=== PATIENT | female | born 1975 | race Caucasian/White ===

== ENCOUNTER 2016-08-24 08:08 | Day surgery (SDC) | payer MEDICAID ==
[2016-08-24] MEDS ORDERED: LIDOCAINE 2% JELLY 30 ML TUBE ONE (09:15)
[2016-08-24] MEDS ORDERED: ONDANSETRON HCL INJ/PF 4 MG/2 ML SDV ONE (09:16)
[2016-08-24] MEDS ORDERED: GLYCOPYRROLATE INJ 0.4 MG/2 ML VIAL ONE (09:16)
[2016-08-24] MEDS ORDERED: PROMETHAZINE HCL INJ 25 MG/1 ML VIAL ONE (09:16)
[2016-08-24] MEDS ORDERED: NALOXONE HCL INJ/PF 0.4 MG/1 ML SDV ONE (09:16)
[2016-08-24] MEDS ORDERED: EPINEPHRINE INJ 1 MG/10 ML DISP.SYRIN ONE (09:17)
[2016-08-24] MEDS ORDERED: FLUMAZENIL INJ 0.5 MG/5 ML VIAL IV ONE (09:17)
[2016-08-24] MEDS ORDERED: GLUCAGON,HUMAN RECOMB 1 MG INJ ONE (09:17)
[2016-08-24] MEDS: MIDAZOLAM 2 MG/2 ML INJ ONE ×3 (09:33→09:43)
[2016-08-24] MEDS: FENTANYL CITRATE INJ/PF 100 MCG/2 ML AMPUL ONE ×2 (09:35→09:39)
[2016-08-24] MEDS ORDERED: SIMETHICONE 80 MG TAB.CHEW ONE (10:52)
[2016-08-24 11:21] LABS: HEMOGLOBIN 12.7 g/dL (12.0-15.5); HGB HCT DIFFERENCE 1.1; MEAN CORPUSCULAR HGB CONC 34.2 g/dL (32.0-36.0); MEAN CORPUSCULAR VOLUME 88 fl (80-97); RED BLOOD COUNT 4.22 10^6/uL (3.72-5.28); RED CELL DISTRIBUTION WIDTH 14.6 % (11.5-14.0); WHITE BLOOD COUNT 8.4 10^3/uL (4.0-10.5)
[2016-08-24 11:23] VITALS: BP 128/66
[2016-08-24 11:49] LABS: BASOPHILS % (MANUAL) 1 % (0-2); EOSINOPHILS % (MANUAL) 6 % (0-6); LYMPHOCYTES % (MANUAL) 14 % (13-45); TOTAL CELLS COUNTED 100
[2016-08-24 11:55] LABS: RBC MORPHOLOGY COMMENT NORMO-CYTIC/CHROMIC
[2016-08-24 11:58] LABS: ERYTHROCYTE SEDIMENTATION RATE 25 mm/hr (0-20)
--- NOTE | 2016-08-24 14:24 | DISCHARGE SUMMARY E ---
Discharge Summary NAME: AMADA ADAMSON : 1975 AGE: 40Y ADMITTED: 08/24/2016 DISCHARGED: 08/24/2016 FINAL DIAGNOSES: 1. EXTERNAL HEMORRHOIDS 2. RECTAL BLEEDING. HISTORY: A 40-year-old female, ALLERGIC TO PENICILLIN, SULFA, IMITREX, and MOTRIN, underwent colonoscopy today to the ascending colon. No active bleeding. The only thing I can see is external hemorrhoids to explain her bleeding. She does have dimunitive rectosigmoid polyps. I saw no diverticulosis; no active bleeding. PLAN: 1. Assurance. 2. Continue present management. 3. Obtain baseline CBC and iron and ferritin and B12. 4. Patient to see us in the office in the next few days. DICTATING PHYSICIAN: IRAIS MERINO M.D. [id number] PHY#: [id number] ID: [id number] JOB#: [id number] ACCT: [id number] cc:IRAIS MERINO M.D. >
--- NOTE | 2016-08-24 14:27 | OPERATIVE REPORT E ---
Operative Report NAME: AMADA ADAMSON : 1975 AGE: 40Y DATE OF SURGERY: 08/24/2016 ROOM: HISTORY: Patient initially was scheduled for sigmoid. She did not show up on Tuesday, but she was scheduled for Tuesday. She has continued on liquids because of her persistent rectal bleeding, and a prolonged diet; We elected to change sigmoid into colonoscopy. PREOPERATIVE DIAGNOSIS: RECTAL BLEEDING. POSTOPERATIVE DIAGNOSIS: 1. EXTERNAL HEMORRHOIDS. 2. BENIGN-LOOKING RECTOSIGMOID POLYPS, TOO SMALL TO BIOPSY (2 MM TO 3 MM IN SIZE EACH) OPERATION: The scope advanced all the way to proximal ascending. I could not go into the cecum because there was large amount of muddy, full liquidy stool. RECTAL EXAM: External hemorrhoids. Rectum shows dimunitive polyps. SIGMOID: Dimunitive polyps. DESCENDING COLON: Normal. TRANSVERSE COLON: Normal. ASCENDING COLON: Normal. CECUM: Was not visualized because of large amount of stool. Scope withdrawn ascending, transverse, descending, sigmoid, all the way to the rectum. CONCLUSION: RECTAL BLEEDING, MOST LIKELY SECONDARY TO EXTERNAL HEMORRHOIDS WHICH WERE VISUALIZED NICELY ON RETROFLEXED POSITION. NO ACTIVE BLEEDING. THE ONLY FINDING TO EXPLAIN THE BLEEDING IS EXTERNAL HEMORRHOIDS; LARGE AMOUNT OF MUDDY STOOL IN THE ASCENDING COLON. PLAN: 1. If the patient continues to have rectal bleeding, we will consider surgical consult, possible hemorrhoid surgery (external). 2. We will obtain baseline CBC. ADDENDUM: It is important to note that the patient did have another colonoscopy by Dr. Epps a few months ago, and she did have upper scope as well. DICTATING PHYSICIAN: IRAIS MERINO M.D. [id number] PHY#: [id number] ID: [id number] JOB#: [id number] ACCT: [id number] cc:IRAIS MERINO M.D. >
== END 2016-08-24 11:25 | disposition home or self-care (01) ==
LOC: END 08:08
PROVIDERS: ATTEND Specialist
PROC: 0DJD8ZZ Inspection of Lower Intestinal Tract, Via Natural or Artificial Opening Endoscopic (ICD-10-PCS; principal; 2016-08-24 09:00)
DX: K64.4 Residual hemorrhoidal skin tags (principal); K64.8 Other hemorrhoids; D12.7 Benign neoplasm of rectosigmoid junction; K59.00 Constipation, unspecified; Z88.0 Allergy status to penicillin; Z88.2 Allergy status to sulfonamides; Z88.8 Allergy status to other drugs, medicaments and biological substances; Z88.6 Allergy status to analgesic agent; Z79.899 Other long term (current) drug therapy
CPT/HCPCS: 45330; 86256; 36415; 82607; 82728; 83540; 85025; 85652; J2250; J3010; J1610; J3490; J2405; J0171; J2310; J2550

== ENCOUNTER 2016-09-01 19:30 | Emergency (ER) | payer MEDICAID ==
--- NOTE | 2016-09-01 19:42 | ER Document Report ---
ED Medical Screen (RME) - General Stated Complaint: RECTAL ISSUE Mode of Arrival: Ambulatory Information source: Patient Notes: Patient presents to the ED with c/o hemorrhoids. Instructed by dr thorne to go to ED for surgical consult. Also presents with diarrhea. I have greeted and performed a rapid initial assessment of this patient. A comprehensive ED assessment and evaluation of the patient, analysis of test results and completion of the medical decision making process will be conducted by additional ED providers. TRAVEL OUTSIDE OF THE [place] IN LAST 30 DAYS: No - Related Data Allergies/Adverse Reactions: erythromycin base [Erythromycin Base] Allergy (Severe, Verified 08/24/16 08:21) Anaphylaxis Penicillins Allergy (Severe, Verified 08/24/16 08:21) Anaphylaxis Sulfa (Sulfonamide Antibiotics) Allergy (Severe, Verified 08/24/16 08:21) Anaphylaxis sumatriptan [From Imitrex] Allergy (Severe, Verified 08/24/16 08:21) Chest pain sumatriptan succinate [From Imitrex] Allergy (Severe, Verified 08/24/16 08:21) Chest pain ibuprofen [From Motrin] Allergy (Intermediate, Verified 08/24/16 08:21) hives, upset stomach Past Medical History - Past Medical History Cardiac Medical History: Denies: Hx Heart Attack, Hx Hypertension Pulmonary Medical History: Denies: Hx Asthma, Hx Bronchitis, Hx COPD, Hx Pneumonia Neurological Medical History: Reports: Hx Migraine. Denies: Hx Seizures GI Medical History: Reports: Hx Gastritis, Hx Gastroesophageal Reflux Disease, Hx Irritable Bowel, Hx Ulcerative Colitis, Hx Colonoscopy Musculoskeltal Medical History: Reports Hx Arthritis - hands Psychiatric Medical History: Reports: Hx Anxiety, Hx Depression, Hx Post Traumatic Stress Disorder Past Surgical History: Reports: Hx Cholecystectomy, Hx Oral Surgery. Denies: Hx Hysterectomy - Immunizations Immunizations up to date: No Hx Diphtheria, Pertussis, Tetanus Vaccination: No - 9-10 years ago
--- NOTE | 2016-09-01 22:30 | ER Document Report ---
ED General - General Chief Complaint: Rectal Pain Stated Complaint: RECTAL ISSUE Mode of Arrival: Ambulatory Notes: Patient is a 4-year-old female with past medical history of irritable bowel syndrome, currently taking a regiment designed to keep her stools frequent loose who presents with concerns of ongoing rectal and anal irritation. States that she's been having symptoms for 20 years but the pain has become increasingly worse with bowel movements since starting a new medication designed to help her have regular bowel movements. She was instructed by her GI doctor, emergency department shannon for surgical consultation given her ongoing discomfort despite multiple medical therapies. Does describe the pain in her rectum as being a constant, severe, burning pain. Worsened by movement. She's been trying multiple medications without any relief of her pain. Denies any fever, vomiting, abdominal pain. States that her symptoms are overall greatly worsened by her chronic daily anxiety and depression. TRAVEL OUTSIDE OF THE [place] IN LAST 30 DAYS: No - Related Data Allergies/Adverse Reactions: erythromycin base [Erythromycin Base] Allergy (Severe, Verified 08/24/16 08:21) Anaphylaxis Penicillins Allergy (Severe, Verified 08/24/16 08:21) Anaphylaxis Sulfa (Sulfonamide Antibiotics) Allergy (Severe, Verified 08/24/16 08:21) Anaphylaxis sumatriptan [From Imitrex] Allergy (Severe, Verified 08/24/16 08:21) Chest pain sumatriptan succinate [From Imitrex] Allergy (Severe, Verified 08/24/16 08:21) Chest pain ibuprofen [From Motrin] Allergy (Intermediate, Verified 08/24/16 08:21) hives, upset stomach Past Medical History - General Information source: Patient - Social History Smoking Status: Current Every Day Smoker Chew tobacco use (# tins/day): No Frequency of alcohol use: Occasional Drug Abuse: None Lives with: Spouse/Significant other Family History: Reviewed & Not Pertinent Patient has suicidal ideation: No Patient has homicidal ideation: No - Past Medical History Cardiac Medical History: Denies: Hx Heart Attack, Hx Hypertension Pulmonary Medical History: Denies: Hx Asthma, Hx Bronchitis, Hx COPD, Hx Pneumonia Neurological Medical History: Reports: Hx Migraine. Denies: Hx Seizures Renal/ Medical History: Denies: Hx Peritoneal Dialysis GI Medical History: Reports: Hx Gastritis, Hx Gastroesophageal Reflux Disease, Hx Irritable Bowel, Hx Ulcerative Colitis, Hx Colonoscopy Musculoskeltal Medical History: Reports Hx Arthritis - hands Psychiatric Medical History: Reports: Hx Anxiety, Hx Depression, Hx Post Traumatic Stress Disorder Past Surgical History: Reports: Hx Cholecystectomy, Hx Oral Surgery. Denies: Hx Hysterectomy - Immunizations Immunizations up to date: No Hx Diphtheria, Pertussis, Tetanus Vaccination: No - 9-10 years ago Review of Systems - Review of Systems Notes: Constitutional: Negative for fever. Cardiovascular: Negative for chest pain. Respiratory: Negative for shortness of breath. Gastrointestinal: Negative for vomiting positive for loose bowel movements and multiple external hemorrhoids Musculoskeletal: Negative for back pain. Skin: Negative for rash. Neurological: Negative for weakness or numbness. 10 point ROS negative except as marked above and in HPI. Physical Exam - Vital signs Vitals: Temp Pulse Resp BP Pulse Ox 98.2 F 123 H 18 127/75 H 100 09/01/16 19:40 09/01/16 19:40 09/01/16 19:40 09/01/16 19:40 09/01/16 19:40 Interpretation: Tachycardic Notes: PHYSICAL EXAMINATION: GENERAL: Well-appearing, well-nourished and in no acute distress. HEAD: Atraumatic, normocephalic. EYES: sclera anicteric, conjunctiva are normal. ENT: Moist mucous membranes. NECK: Normal range of motion LUNGS: Normal work of breathing HEART: 2+ radial pulses bilaterally Abdomen: No focal abdominal tenderness rebound or guarding Rectal: One small external hemorrhoid that is not thrombosed. Rectal tone normal. No anal fissure. EXTREMITIES: no pitting or edema. No cyanosis. NEUROLOGICAL: No focal neurological deficits. Moves all extremities spontaneously and on command. PSYCH: Normal mood, normal affect. SKIN: Warm, Dry, normal turgor, no rashes or lesions noted. Course - Re-evaluation Re-evalutation: 09/02/16 03:42 Presentation is most consistent with uncomplicated external hemorrhoids. No evidence of thrombosed hemorrhoid or an indication for surgical consultation. Patient's abdominal exam is otherwise benign. I do not suspect a more significant lower GI bleed or upper GI bleed based on history, vitals, and patient's overall well appearance. At this time will discharge with return precautions and follow-up recommendations. Verbal discharge instructions given a the bedside and opportunity for questions given. Medication warnings reviewed. Patient is in agreement with this plan and has verbalized understanding of return precautions and the need for primary care follow-up in the next 24-72 hours. - Vital Signs Vital signs: Temp Pulse Resp BP Pulse Ox 98.2 F 100 16 113/55 L 96 09/01/16 19:40 09/01/16 22:51 09/01/16 22:51 09/01/16 22:51 09/01/16 22:51 Discharge - Discharge Clinical Impression: Rectal pain, chronic, External hemorrhoid Condition: Good Disposition: HOME, SELF-CARE Additional Instructions: You have been started on topical triamcinolone to help treat the anal irritation. Apply only twice daily. Please follow-up with your GI doctor regarding other options including topical nitroglycerin cream. Return if you develop a fever, persistent vomiting, large volume rectal bleeding, or any other symptoms that are concerning to you. Prescriptions: Triamcinolone Acetonide 80 gm TP BID PRN #80 cream.gm. PRN Reason: Referrals: ROSALIE CASTILLO DO [Primary Care Provider] - Follow up as needed
[2016-09-01 22:52] VITALS: BP 113/55
== END 2016-09-01 22:50 | disposition home or self-care (01) ==
LOC: ER 19:30
DX: K64.4 Residual hemorrhoidal skin tags (principal); K58.9 Irritable bowel syndrome, unspecified; K62.89 Other specified diseases of anus and rectum; G89.29 Other chronic pain; F41.9 Anxiety disorder, unspecified; F32.9 Major depressive disorder, single episode, unspecified; R00.0 Tachycardia, unspecified; F17.200 Nicotine dependence, unspecified, uncomplicated; Z79.899 Other long term (current) drug therapy; Z88.1 Allergy status to other antibiotic agents; Z88.0 Allergy status to penicillin; Z88.2 Allergy status to sulfonamides; Z88.6 Allergy status to analgesic agent
CPT/HCPCS: 99283

== ENCOUNTER → 2017-03-23 | Outpatient (CLI) | payer MEDICAID ==
--- NOTE | 2017-03-23 19:49 | RADIOLOGY REPORT (SQ) ---
EXAM DESCRIPTION: ABDOMEN 2 VIEWS COMPLETED DATE/TIME: 03/23/2017 7:39 pm REASON FOR STUDY: Constipation, unspecified COMPARISON: None. NUMBER OF VIEWS: Two views. TECHNIQUE: Supine and erect/decubitus radiographic images of the abdomen acquired. LIMITATIONS: None. FINDINGS: FREE AIR: None. No abnormal gas collections. LUNG BASES: Clear. BOWEL GAS PATTERN: Nonobstructive pattern. No dilated loops or air fluid levels. CALCIFICATIONS: No suspicious calcifications. SOFT TISSUES: No gross mass or suggestion of organomegaly. HARDWARE: There are clips in the right upper quadrant consistent with cholecystectomy. 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 OTHER: No other significant finding. IMPRESSION: NO RADIOGRAPHIC EVIDENCE FOR ACUTE ABDOMINAL DISEASE. TECHNICAL DOCUMENTATION: JOB ID: [id number] [employer]- All Rights Reserved
== END ==
LOC: RAD 19:14
PROVIDERS: ATTEND Physician Assistant
DX: K59.00 Constipation, unspecified (principal)
CPT/HCPCS: 74020

== ENCOUNTER 2017-06-24 13:47 | Emergency (ER) | payer MEDICAID ==
[2017-06-24 13:53] VITALS: BP 129/74
--- NOTE | 2017-06-24 14:46 | ER Document Report ---
HPI - HPI Patient complains to provider of: left axilla abscess Onset: Other - 9 days ago Onset/Duration: Gradual Pain Level: 4 Context: 41 yo female left axilla abscess 9 days ago, Getting worse despite levoquin 500mg for 7 days. No hx hidradinitis. Used warm compress. No hx MRSA. Associated Symptoms: None Exacerbated by: Movement Relieved by: Denies - ROS ROS below otherwise negative: Yes Systems Reviewed and Negative: Yes All other systems reviewed and negative - REPRODUCTIVE Reproductive: DENIES: : - DERM Skin Color: Normal Past Medical History - General Information source: Patient - Social History Smoking Status: Current Every Day Smoker Frequency of alcohol use: None Drug Abuse: None Occupation: unemployed Lives with: Family Family History: Reviewed & Not Pertinent Patient has suicidal ideation: No Patient has homicidal ideation: No - Past Medical History Cardiac Medical History: Neurological Medical History: Reports: Hx Migraine. Denies: Hx Seizures Renal/ Medical History: Denies: Hx Peritoneal Dialysis GI Medical History: Reports: Hx Gastritis, Hx Gastroesophageal Reflux Disease, Hx Irritable Bowel, Hx Ulcerative Colitis, Hx Colonoscopy Other: see surgeon Wesly GUEVARA Musculoskeltal Medical History: Reports Hx Arthritis - hands Psychiatric Medical History: Reports: Hx Anxiety, Hx Depression, Hx Post Traumatic Stress Disorder Past Surgical History: Reports: Hx Cholecystectomy. Denies: Hx Hysterectomy Other: left facial surgery - Immunizations Immunizations up to date: No Hx Diphtheria, Pertussis, Tetanus Vaccination: No - 9-10 years ago Vertical Provider Document - CONSTITUTIONAL Agree With Documented VS: Yes Exam Limitations: No Limitations General Appearance: No Apparent Distress - INFECTION CONTROL TRAVEL OUTSIDE OF THE [place] IN LAST 30 DAYS: No - HEENT HEENT: Normocephalic - NECK Neck: Supple - RESPIRATORY O2 Sat by Pulse Oximetry: 97 - MUSCULOSKELETAL/EXTREMETIES Musculoskeletal/Extremeties: TOM ANDREW - NEURO Level of Consciousness: Awake, Alert - DERM Integumentary: Warm, Dry, Abscess - left axilla with erythema, center fluctuance , surrounding induration Course - Re-evaluation Re-evalutation: 06/25/17 10:55 called pt to checkon her, it drained more last night, out of levaquin so called [facility]xycy[facility]. - Vital Signs Vital signs: Temp Pulse Resp BP Pulse Ox 97.8 F 112 H 18 129/74 H 97 06/24/17 13:52 06/24/17 13:52 06/24/17 13:52 06/24/17 13:52 06/24/17 13:52 Procedures - Incision and Drainage Left Arm Time completed: 16:10 Type: Simple Anesthetic type: 1% Lidocaine mL's of anesthetic: 6 Blade size: 11 I&D procedure: Betadine prep applied, Sterile dressing applied Incision Method: Incision made by scalpel Amount/type of drainage: large pus Notes: 06/25/17 10:57 left axilla Discharge - Discharge Clinical Impression: left axilla abscess I and D Condition: Good Disposition: HOME, SELF-CARE Instructions: Abscess ([facility]), Post Incision and Drainage Additional Instructions: Continue the Levaquin Wound culture is pending Keep the dressing on for 2 days of the packing will stay in the incision Return to the emergency room if worsening symptoms Warm compress Please complete the patient satisfaction survey if you get one, and return it.. If you do not receive a survey, then you can go to the [facility] website, [email or web address] and place your comments about your very good care. Thank you very much. It was a pleasure being your medical provider today. Prescriptions: Doxycycline Hyclate 100 mg PO BID #14 tablet.
[2017-06-24] MEDS ORDERED: LIDOCAINE 4%/TETRACAINE 0.5%/EPI 0.18% 5 ML TOPICAL SOLN TOP ONE (15:04)
[2017-06-24] MEDS ORDERED: ONDANSETRON 4 MG TAB.RAPDIS PO ONE (15:06)
[2017-06-24] MEDS ORDERED: OXYCODONE-ACETAMINOPHEN 5-325 MG TABLET PO ONE (15:06)
[2017-06-24] MEDS ORDERED: LIDOCAINE 1% INJ-PF (10 MG/ML) 30 ML SDV ONE (16:12)
[2017-06-24] MEDS ORDERED: LIDOCAINE 1% INJ-PF (10 MG/ML) 30 ML SDV INJ ONE ×2 (16:51)
== END 2017-06-24 16:34 | disposition home or self-care (01) ==
LOC: ER 13:47
PROC: 0H9CXZZ Drainage of Left Upper Arm Skin, External Approach (ICD-10-PCS; principal; 2017-06-24)
DX: L02.412 Cutaneous abscess of left axilla (principal); Z79.899 Other long term (current) drug therapy; F17.200 Nicotine dependence, unspecified, uncomplicated
CPT/HCPCS: 99283; 87070; 87205; 87075; 87077; 87186; 10060; S0119; J3490 ×2

== ENCOUNTER 2017-07-27 19:59 | Emergency (ER) | payer MEDICAID ==
[2017-07-27 20:20] VITALS: BP 141/114
[2017-07-27] MEDS ORDERED: HYDROCODONE/ACETAMINOPHEN 5-325 MG 6 TAB/DSPK PO PRN (22:35)
[2017-07-27] MEDS ORDERED: DOXYCYCLINE HYCLATE 100 MG TABLET PO ONE (22:35)
[2017-07-27] MEDS ORDERED: HYDROCODONE/ACETAMINOPHEN 5-325 MG TABLET PO ONE (22:35)
--- NOTE | 2017-07-27 22:36 | ER Document Report ---
ED General - General Chief Complaint: Abscess Stated Complaint: LEFT ARM ABSCESS Time Seen by Provider: 07/27/17 22:09 Notes: Patient is a 41-year-old female who presents with complaint of an abscess in the right axilla. She says that she has not there was some spreading redness it has been there for less 2 days. She was treated for an abscess several weeks ago. She is placed on antibiotics she finished just over week ago. She says she was doing well until a few days ago when this area started to bother her. No fevers. One episode of vomiting. Patient says she has diarrhea but also has chronic diarrhea. She says diarrhea may is a bit worse than usual. No other complaints at this time. TRAVEL OUTSIDE OF THE [place] IN LAST 30 DAYS: No - Related Data Allergies/Adverse Reactions: erythromycin base [Erythromycin Base] Allergy (Severe, Verified 07/27/17 20:03) Anaphylaxis Penicillins Allergy (Severe, Verified 07/27/17 20:03) Anaphylaxis Sulfa (Sulfonamide Antibiotics) Allergy (Severe, Verified 07/27/17 20:03) Anaphylaxis sumatriptan [From Imitrex] Allergy (Severe, Verified 07/27/17 20:03) Chest pain sumatriptan succinate [From Imitrex] Allergy (Severe, Verified 07/27/17 20:03) Chest pain ibuprofen [From Motrin] Allergy (Intermediate, Verified 07/27/17 20:03) hives, upset stomach esomeprazole [From Nexium] Allergy (Verified 07/27/17 20:03) Past Medical History - Social History Smoking Status: Current Every Day Smoker Chew tobacco use (# tins/day): No Frequency of alcohol use: None Drug Abuse: None Family History: Reviewed & Not Pertinent Patient has suicidal ideation: No Patient has homicidal ideation: No - Past Medical History Cardiac Medical History: Denies: Hx Heart Attack, Hx Hypertension Pulmonary Medical History: Denies: Hx Asthma, Hx Bronchitis, Hx COPD, Hx Pneumonia Neurological Medical History: Reports: Hx Migraine. Denies: Hx Seizures Renal/ Medical History: Denies: Hx Peritoneal Dialysis GI Medical History: Reports: Hx Gastritis, Hx Gastroesophageal Reflux Disease, Hx Irritable Bowel, Hx Ulcerative Colitis, Hx Colonoscopy Musculoskeltal Medical History: Reports Hx Arthritis - hands Psychiatric Medical History: Reports: Hx Anxiety, Hx Depression, Hx Post Traumatic Stress Disorder Past Surgical History: Reports: Hx Cholecystectomy, Hx Oral Surgery. Denies: Hx Hysterectomy - Immunizations Immunizations up to date: No Hx Diphtheria, Pertussis, Tetanus Vaccination: No - 9-10 years ago Review of Systems - Review of Systems Notes: My Normal Review Basic REVIEW OF SYSTEMS: CONSTITUTIONAL : Denies fever, chills, or sweats. Denies recent illness. RESPIRATORY: Denies cough, cold, or chest congestion. Denies shortness of breath, difficulty breathing, or wheezing. GASTROINTESTINAL: Denies abdominal pain. Chronic diarrhea. MUSCULOSKELETAL: Denies neck or back pain or joint pain or swelling. SKIN: Cellulitis on left axilla. NEUROLOGICAL: Denies altered mental status or loss of consciousness. ALL OTHER SYSTEMS REVIEWED AND NEGATIVE. Physical Exam - Vital signs Vitals: Temp Pulse Resp BP Pulse Ox 98.4 F 110 H 20 141/114 H 98 07/27/17 20:18 07/27/17 20:18 07/27/17 20:18 07/27/17 20:18 07/27/17 20:18 - Notes Notes: General Appearance: Well nourished, alert, cooperative, no acute distress, mild to moderate obvious discomfort. Vitals: reviewed, See vital signs table. Head: no swelling or tenderness to the head Eyes: PERRL, EOMI, Conjuctiva clear Chest wall: Patient has a small area of erythematous skin consistent with a cellulitis. This area is approximately 4 cm in diameter. Patient has a 1 cm area of induration at the center of the redness. There is no fluctuance associated with this. Bedside ultrasound does not show a fluid collection. Extremities: strength 5/5 in all extremities, good pulses in all extremities, no swelling or tenderness in the extremities, no edema. Skin: warm, dry, appropriate color, no rash Neuro: speech clear, oriented x 3, normal affect, responds appropriately to questions. Course - Re-evaluation Re-evalutation: 07/28/17 02:55 I talked the patient at length about incision and drainage versus not doing it. I recommend not do incision and drainage at this time being that do not see a drainable fluid collection a bedside ultrasound. She has more an area of induration consistent with early stages of developing an abscess. I informed her that if we are to cut this open now should most likely just have bloody discharge without actual purulent discharge and this would just cause her pain and probably not help improve her symptoms. Informed of the command place her on antibiotics for treatment of the cellulitis and to do warm compresses over the area. If she develops a larger swollen area and some fluctuance and she should return to the ER for reevaluation and possible incision and drainage at that time. She has worsening redness or swelling or fevers and she should return to the ER immediately. Patient agrees with plan will be discharged home. Dictation of this chart was performed using voice recognition software; therefore, there may be some unintended grammatical errors. - Vital Signs Vital signs: Temp Pulse Resp BP Pulse Ox 98.4 F 110 H 20 141/114 H 98 07/27/17 20:18 07/27/17 20:18 07/27/17 20:18 07/27/17 20:18 07/27/17 20:18 Discharge - Discharge Clinical Impression: Cellulitis Qualifiers: Site of cellulitis: extremity Site of cellulitis of extremity: axilla Laterality: left Qualified Code(s): L03.112 - Cellulitis of left axilla Condition: Good Disposition: HOME, SELF-CARE Additional Instructions: ORAL NARCOTIC MEDICATION: You have been given a prescription for pain control. This medication is a narcotic. It's best taken with food, as nausea can result if taken on an empty stomach. Don't operate machinery or drive within six hours of taking this medication. Do not combine this medicine with alcohol, or with any medication which can cause sedation (such as cold tablets or sleeping pills) unless you get permission from the physician. Narcotics tend to cause constipation. If possible, drink plenty of fluids and eat a diet high in fiber and fruits. DOXYCYCLINE: Doxycycline (Vibramycin, Doryx) is an antibiotic of the tetracycline family. This type of drug is useful for infections of the respiratory tract and genital tract, and is sometimes used for intestinal infections. Unlike most tetracyclines, doxycycline can be taken with food. It is longer acting, and (usually) less prone to side effects than regular tetracycline. Tetracycline antibiotics can stain immature teeth and SHOULD NOT BE TAKEN BY CHILDREN, NURSING MOTHERS, OR WOMEN. Tetracyclines can make you more prone to sunburn. Abdominal cramping, nausea, and diarrhea are occasional side effects. Women may experience vaginal yeast infections. Call the doctor at once if you develop hives, itching, shortness of breath , or lightheadedness. FOLLOW-UP CARE: Most simple abscesses will not require a follow up visit. If you had packing placed in the abscess, remove it as instructed by the physician. If you have been referred to a physician for follow-up care, call the physicians office for an appointment as you were instructed or within the next two days. If you experience worsening or a significant change in your symptoms, return to the Emergency Department at any time for re-evaluation. Please apply warm compresses to the area and take the antibiotics as prescribed. You have chronic diarrhea, but sometimes antibiotics can make diarrhea worse. please consider taking an over the counter probiotic. Please return to the ER immediately if you have fevers, blood in your stool, or severe abdominal pain as this can be a sign of an bowel infection caused by antibiotics called C.Diff. Please return to the ER immediately if you have spreading redness, increase in size of the area of firmness, you have an area of fluctuance, or if you feel that your infection is worsening in any way. Prescriptions: Doxycycline Hyclate 100 mg PO BID #20 capsule Hydrocodone/Acetaminophen [[place] 5-325 mg Tablet] 1 tab PO Q4 PRN #16 tablet PRN Reason: For Breakthrough Pain Ondansetron [Zofran Odt 4 mg Tablet] 1 tab PO Q4H PRN #15 tab.rapdis PRN Reason: For Nausea/Vomiting Forms: Return to Work Referrals: ROSALIE CASTILLO DO [Primary Care Provider] - Follow up in 3-5 days
[2017-07-27] MEDS ORDERED: ONDANSETRON 4 MG TAB.RAPDIS PO ONE (22:44)
== END 2017-07-27 23:49 | disposition home or self-care (01) ==
LOC: ER 19:59
DX: L03.112 Cellulitis of left axilla (principal); F17.200 Nicotine dependence, unspecified, uncomplicated; Z88.3 Allergy status to other anti-infective agents; Z88.0 Allergy status to penicillin; Z88.6 Allergy status to analgesic agent; Z90.49 Acquired absence of other specified parts of digestive tract
CPT/HCPCS: 99282; J3490

== ENCOUNTER → 2017-10-21 | Outpatient (CLI) | payer MEDICAID ==
--- NOTE | 2017-10-21 16:05 | RADIOLOGY REPORT (SQ) ---
EXAM DESCRIPTION: NM GASTRIC EMPTYING STUDY COMPLETED DATE/TIME: 10/21/2017 3:00 pm REASON FOR STUDY: NON-INTRACTABLE VOMITING WITH NAUSEA (R11.2) R11.2 NAUSEA WITH VOMITING, UNSPECIF IED COMPARISON: None. RADIONUCLIDE AND DOSE: 2.12 millicuries Tc-99m Sulfur Colloid. The route of agent administration: Oral. TECHNIQUE: Serial images acquired to 4 hours with each image recorded over a 30 minute time frame. I mage intensity values plotted with respect to time with linear regression algorithm. LIMITATIONS: None. FINDINGS: Patient was observed for 4 hours. Gastric emptying at 60 minutes was 36%. Gastric emptying at 90 minutes was 49%. Gastric emptying at 120 minutes was 59% Gastric emptying at 240 minutes was 83%. IMPRESSION: BORDERLINE DELAYED GASTRIC EMPTYING. TECHNICAL DOCUMENTATION: JOB ID: [id number] [employer]- All Rights Reserved Reading location - IP/workstation name: [id number]
== END ==
LOC: RAD 08:00
PROVIDERS: ATTEND Internal Medicine
DX: R11.2 Nausea with vomiting, unspecified (principal)
CPT/HCPCS: 81025; 78264; A9541

== ENCOUNTER 2020-01-14 07:41 | Day surgery (SDC) | payer MEDICAID ==
[2020-01-14 08:51] LABS: INTERNATIONAL RATION (INR) 0.91; PROTHROMBIN TIME 12.2 SEC (11.4-15.4)
[2020-01-14 08:52] LABS: PARTIAL THROMBOPLASTIN TIME 24.5 SEC (23.5-35.8)
[2020-01-14 10:57] LABS: APPEARANCE ALL TUBES CLEAR; COLOR ALL TUBES COLORLESS; CSF TOTAL VOLUME 8.1 CC; CSF TUBE NUMBER 3; VOLUME TUBE 4 2.1 CC
[2020-01-14 11:10] LABS: RED BLOOD CELL,CSF 0 /uL (0-10)
[2020-01-14 11:11] LABS: WHITE BLOOD CELL,CSF 1 /uL (0-5)
[2020-01-14 11:35] LABS: GLUCOSE,CSF 66 mg/dL (40-70); PROTEIN,CSF 55 mg/dL (12-60)
--- NOTE | 2020-01-14 13:15 | RADIOLOGY REPORT (SQ) ---
EXAM DESCRIPTION: LUMBAR PUNCTURE IMAGES COMPLETED DATE/TIME: 01/14/2020 10:39 am REASON FOR STUDY: MUSPECIFIED CONVULSIONS/ UNSPECIFIED ABNORMAL INVOLUNTARY MOVEMENTS R56.9 UNSPECI FIED CONVULSIONS R25.9 UNSPECIFIED ABNORMAL INVOLUNTARY MOVEMENTS R25.1 TREMOR, UNSPECIFIED COMPARISON: None. FLUOROSCOPY TIME: 17 seconds 1 images submitted to PACS. TECHNIQUE: Fluoroscopic guided lumbar puncture. LIMITATIONS: None. PROCEDURE: After written consent and assessment were obtained, the patient was brought into the fluo roscopy room and placed prone on the table. The patient's lower back was prepped in a sterile fashio n and an entry site was selected under live fluoroscopic guidance. The entry site was anesthetized wi th 1% lidocaine. A 20 gauge needle was advanced through the skin and into the thecal sac at the level of L2-L3. Opening pressure was 27 cm of water. After approximately 8 ml was drained, the closing p ressure was taken, which measured 20 cm of water. The needle was removed and a sterile bandage was p laced on the site. Specimens were sent to the lab for testing. A fluoroscopic spot image was saved to PACS confirming level access. FINDINGS: Clear CSF. IMPRESSION: Lumbar puncture under fluoroscopy. No immediate complication. COMMENT: Patient medication list reviewed: Yes- Quality ID# [id number]:Eligible professional attests to doc umenting in the medical record they obtained, updated, or reviewed the patient's current medications. . Quality ID 145: Final reports for procedures using fluoroscopy that document radiation exposure lillian jer, or exposure time and number of fluorographic images (if radiation exposure indices are not avail able) TECHNICAL DOCUMENTATION: JOB ID: [id number] 2010 [employer]- All Rights Reserved Reading location - IP/workstation name: [email or web address]
[2020-01-14 15:08] VITALS: BP 130/76
[2020-01-16 13:36] LABS: ALBUMIN SERUM 3.8 g/dL (3.8-4.8); CSF IGG INDEX 0.6 (0.0-0.7); IGG SYNTHESIS RATE CSF 1.3 mg/day (-9.9 TO +3); IGG/ALBUMIN RATIO CSF 0.17 (0.00-0.25); IMMUNOGLOBULIN G CSF 4.7 mg/dL (0.0-8.6)
== END 2020-01-14 12:56 | disposition home or self-care (01) ==
LOC: RAD 07:41
PROVIDERS: ATTEND Specialist
DX: R56.9 Unspecified convulsions (principal); R25.9 Unspecified abnormal involuntary movements; R25.1 Tremor, unspecified; K08.9 Disorder of teeth and supporting structures, unspecified
CPT/HCPCS: 36415; 62328; 82784; 82945; 83916; 84157; 84703; 85610; 85730; 87070; 87205; 89050